=== PATIENT | male | born 1985 | race Caucasian/White ===

== ENCOUNTER 2017-12-30 15:47 | Emergency (ER) | payer MEDICAID ==
[~2017-12-30] VITALS: Ht 162.6 cm; Wt 72.6 kg
[2017-12-30] MEDS ORDERED: TDAP [DIPH/PERTUSSIS/TET] 0.5 ML VIAL IM ONE ×2 (15:58→17:00)
[2017-12-30] MEDS ORDERED: LIDOCAINE HCL/MPF 1% 30 ML VIAL IJ ONE (16:03)
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
--- NOTE | 2017-12-30 16:11 | NUR ---
TDAP GIVEN IM IN LEFT DELTOID LOT: [id number] EXP: 09/21/19
[2017-12-30] MEDS ORDERED: LET SOLN TOPICAL 8 ML UDC TP ONE ×2 (16:29→16:30)
--- NOTE | 2017-12-30 16:35 | NUR ---
LET APPLIED BY ARMANI HALE/CHG AND ROMEO PALACIOS
[2017-12-30] MEDS ORDERED: LIDOCAINE HCL/PF 1% 30 ML SDV IJ ONE (17:00)
[2017-12-30 17:07] VITALS: BP 127/83
== END 2017-12-30 16:50 | disposition home or self-care (01) ==
LOC: ER 15:48
DX: S91.312A Laceration without foreign body, left foot, initial encounter (principal); W26.8XXA Contact with other sharp object(s), not elsewhere classified, initial encounter; Y93.89 Activity, other specified; Y92.89 Other specified places as the place of occurrence of the external cause; Y99.0 Civilian activity done for income or pay
CPT/HCPCS: 90715; A4606; A6402; J3490; Z7610

== ENCOUNTER 2018-01-02 08:07 | Emergency (ER) | payer MEDICAID ==
[~2018-01-02] VITALS: Ht 162.6 cm; Wt 72.6 kg
[2018-01-02 08:07] VITALS: BP 136/80
== END 2018-01-02 08:30 | disposition home or self-care (01) ==
LOC: ER 08:09
DX: S91.312D Laceration without foreign body, left foot, subsequent encounter (principal); W22.8XXD Striking against or struck by other objects, subsequent encounter
CPT/HCPCS: 99283; A4606; Z7610

== ENCOUNTER 2018-01-09 08:09 | Emergency (ER) | payer MEDICAID ==
[~2018-01-09] VITALS: Ht 177.8 cm; Wt 77.1 kg
[2018-01-09 08:09] VITALS: BP 120/70
== END 2018-01-09 08:25 | disposition home or self-care (01) ==
LOC: ER 08:10
DX: S91.319D Laceration without foreign body, unspecified foot, subsequent encounter (principal); X58.XXXD Exposure to other specified factors, subsequent encounter
CPT/HCPCS: 99281; A4606; A6402; Z7610; Z7502

== ENCOUNTER 2018-02-10 18:49 | Emergency (ER) | payer MEDICAID ==
[~2018-02-10] VITALS: Ht 177.8 cm; Wt 79.4 kg
[2018-02-10 19:08] VITALS: BP 129/87
== END 2018-02-10 20:07 | disposition home or self-care (01) ==
LOC: ER 18:52
DX: M79.672 Pain in left foot (principal); M79.675 Pain in left toe(s)
CPT/HCPCS: A4606; Z7610